=== PATIENT | male | born 1970 | race Caucasian/White ===

== ENCOUNTER 2020-01-01 13:51 | Inpatient (IN) | payer OTHER ==
[~2020-01-01] VITALS: Ht 177.8 cm; Wt 113.4 kg
[2020-01-01 13:56] VITALS: BP 161/93
[2020-01-01] MEDS ORDERED: PROAIR HFA8.5 GM INH (13:59)
[2020-01-01] MEDS ORDERED: METFORMIN HCL500 M3 PO (14:00)
[2020-01-01] MEDS ORDERED: SYMBICORT160 MCG/4. INH (14:00)
[2020-01-01] MEDS ORDERED: SINGULAIR4 M1 PO (14:00)
[2020-01-01] MEDS ORDERED: ALBUTEROL2.5 MG/31 INH (14:01)
[2020-01-01 14:31] LABS: ABSOLUTE NEUTROPHILS 7.4 thou/uL (1.4-8.2); BASOPHILS 0.6 % (0.0-2.0); EOSINOPHILS 3.6 % (0.0-3.0); HEMATOCRIT 38.2 % (42.0-52.0); HEMOGLOBIN 13.4 gm/dL (14.0-18.0); LYMPHOCYTES 16.7 % (24.0-44.0); MCV 91.4 fL (80.0-100.0); MONOCYTES 5.9 % (1.0-8.0); PLATELET COUNT 281 thou/uL (150-400); POLYS 73.2 % (36.0-66.0); RBC 4.19 mil/uL (4.50-6.00); RDW 13.5 % (10.5-14.5); WBC 10.1 thou/uL (4.0-11.0)
[2020-01-01 14:40] LABS: CALCIUM 8.6 mg/dL (8.5-10.1); CREATININE 0.9 mg/dL (0.7-1.3); POTASSIUM 3.3 mmol/L (3.5-5.1)
[2020-01-01 14:45] LABS: ALBUMIN 3.2 g/dL (3.4-5.0); TOTAL BILIRUBIN 0.3 mg/dL (0.2-1.0); TOTAL PROTEIN 7.6 g/dL (6.4-8.2)
[2020-01-01 14:52] VITALS: BP 161/93
[2020-01-01 15:59] LABS: URINE BILIRUBIN NEGATIVE (Negative); URINE BLOOD NEGATIVE (Negative); URINE CLARITY CLEAR; URINE COLOR YELLOW; URINE GLUCOSE-RANDOM* NEGATIVE (Negative); URINE KETONES NEGATIVE (Negative); URINE LEUKOCYTES-REFLEX NEGATIVE (Negative); URINE NITRITE-REFLEX NEGATIVE (Negative); URINE PROTEIN (DIPSTICK) TRACE (Negative); URINE SPECIFIC GRAVITY >= 1.030 (1.005-1.035); URINE UROBILINOGEN 0.2 E.U./dl (0.2-1.0)
[2020-01-01 16:49] LABS: CHOLESTEROL 103 mg/dL (<200); HDL CHOLESTEROL 32 mg/dL (>40); LDL CHOLESTEROL 51 mg/dL (<100); TC:HDL 3.2 Ratio (Not establshd); TRIGLYCERIDE 101 mg/dL (<150); VLDL 20 mg/dL (<40)
--- NOTE | 2020-01-01 16:50 | NUR ---
ABSORPTION AND ADSORPTION ENGINEER CONTACTED TO ORDER A REGULAR DIET MEAL TRAY. INFORMED TO DELIEVER TO ROOM TO ROOM 460
[2020-01-01 16:55] VITALS: BP 162/80
[2020-01-01 17:13] LABS: TSH 2.065 uIU/mL (0.358-3.740)
[2020-01-01 17:36] VITALS: BP 133/80
[2020-01-01 17:42] LABS: FOLIC ACID 33.4 ng/mL (8.6-58.9)
[2020-01-01 20:29] VITALS: BP 117/66
--- NOTE | 2020-01-01 20:48 | NUR ---
PATIENT CAME FROM ER AROUND 1645. ALERT X ORIENTED X 4. AMBULATES SELF. REGULAR DIET. ON ROOM AIR. BLOOD SUGAR CHECK BEFORE DINNER AND BEDTIME. PT RECENTLY RELEASED FROM [facility], NO HISTORY OF TRAVEL, LOWER EXTREM CELLULITIS STARTED 2 DAYS BACK, NO HISTORY OF TRAVEL. DOESN'T WANT HIS CONDITION TO BE COMMUNICATED WITH FAMILY OR FRIENDS. SHIFT REPORT GIVEN TO MORAIMA RIVERA RN.
--- NOTE | 2020-01-02 03:45 | NUR ---
PATIENT ALERT AND ORIENTED X4. UP TO BATHROOM INDEPENDENTLY. COOPERATIVE WITH CARE. BS MONITORED PER ORDER. BILATERAL LOWER LEGS WITH EDEMA AND REDNESS, HOWEVER, PATIENT STATES THAT THEY FEEL BETTER. MEDICATED FOR PAIN WITH GOOD RESULTS. PATIENT ABLE TO SLEEP. WILL MONITOR.
[2020-01-02 05:55] LABS: HEMATOCRIT 36.6 % (42.0-52.0); HEMOGLOBIN 12.4 gm/dL (14.0-18.0); MCH 31.6 pg (26.0-34.0); MCHC 33.8 g/dL (28.0-37.0); MCV 93.4 fL (80.0-100.0); RBC 3.92 mil/uL (4.50-6.00); RDW 13.4 % (10.5-14.5); WBC 7.8 thou/uL (4.0-11.0)
[2020-01-02 08:10] VITALS: BP 115/67
[2020-01-02 08:25] VITALS: BP 115/67
--- NOTE | 2020-01-02 15:30 | NUR ---
Pt.was sleeping when I first arrived on duty. Pt ate all his food on his try. Pt was oob to bathroom other lyle in bed with feet elevated. Pt stated both his legs are feeling better. Skin is red and edematous , no edema , weeping or open woounds noted. Chest sounds were clear , pedal pulse was faint and area tender to touch. last BM was on 01/02/20. Leandro denies any burning pain. Blood glucose were as follow 97 this am and 108 @ lunch. Insulin not given as per sliding scale orderes. ordergrzegorz frederick bandage wraps to both legs . Tylenal po for leg discomfort was give rating from level 5 to lvevl 2 with with relife. Pt is able to move toes, denies tingling or numbness to area.
[2020-01-02 15:40] VITALS: BP 120/66
[2020-01-02 20:13] VITALS: BP 142/70
--- NOTE | 2020-01-03 03:40 | NUR ---
ASSUMED CARE OF PT AT 1900HRS. PT AOX4 ADN LETS NEEDS BE KNOWN. PT IS UP AD MARCUS. ASSESSMENT CHARTED. ABX TREATMENT CONTINUED. PT WAS ABLE TO GET COMFORTABLE AND SLEEP PART OF THE SHIFT. VSS AND NO S/S OF ACUTE DISTRESS. WILL CONTINUE TO MONITOR FOR CHANGES.
[2020-01-03 06:19] LABS: HEMATOCRIT 34.5 % (42.0-52.0); HEMOGLOBIN 11.5 gm/dL (14.0-18.0); MCH 31.5 pg (26.0-34.0); MCHC 33.4 g/dL (28.0-37.0); MCV 94.2 fL (80.0-100.0); RBC 3.66 mil/uL (4.50-6.00); RDW 13.6 % (10.5-14.5); WBC 5.5 thou/uL (4.0-11.0)
[2020-01-03 07:34] VITALS: BP 148/90
--- NOTE | 2020-01-03 13:18 | NUR ---
ASSUMED PT CARE AT 0700. PT ALERT X ORIENTED X 4. CALL LIGHT WITHIN REACH. PT WILL CALL APPROPRIATELY. STAND BY ASST FOR SAFETY. PAIN CONTROLLED BY PAIN MEDS. PT HAS B/L WHEEZING, PT SAID HE TAKES BREATHING TT AT HOME FOR COPD ,COMMUNICATED WITH DOCTOR. WILL CONT TO MONITOR.
--- NOTE | 2020-01-03 14:25 | NUR ---
PT ADMITTED RELATED TO BILATERAL LEFT EXTREMITY CELLULITIS. CM REVIEWED CHART AND SPOKE WITH CARE TEAM. CM ATTEMPTED TO VISIT WITH PT THIS AM BUT PT DIDN'T ANSWER WHEN CM KNOCKED. CM CALLED AND SPOKE WITH PT OVER THE PHONE. PT APPEARED TO BE A&O X4. CM ROLE INTRODUCED. PT INDICATED HE HAD BEEN STAYING WITH A FRIEND [employer]. PT INDICATED FULL FIGHT TO ENTER NO STEPS ONCE INSIDE. PT INDICATED HE HAD BEEN INDEPENDENT WITH GAIT AND ADLS [employer]. PT INDICATED HE IS PATIENT PAY AND HADN'T BEEN EMPLOYED IN [employer]. PT [facility] PT INDICATED HE HOPES TO GO BACK TO STAYING WITH FRIEND UPON [place]. PT INDICATED HE IS INTERESTED IN A COPY OF [facility] PACKET AND MAY NEED ASSISTANCE WITH MEDS UPON [place]. CM TO FOLLOW INDICATED WITH DC PLANNING.
[2020-01-03 20:23] VITALS: BP 143/77
--- NOTE | 2020-01-04 03:45 | NUR ---
ASSUMED CARE OF PT AT 1900HRS. PT AOX4 AND UP AD MARCUS. PT LETS NEEDS BE KNOWN. ABX TREATMENT CONTINUED. PT REPORTS SOME PAIN TO BLE. PT DENIES NAUSEA OR SOA. ASSESSMENT CHARTED. PT WAS ABLE TO GET COMGORTABLE AND SLEEP PART OF THE SHIFT. VSS AND NO S/S OF ACUTE DISTRESS. WILL CONTINUE TO MONITOR FOR CHANGES.
[2020-01-04 07:15] VITALS: BP 170/65
--- NOTE | 2020-01-04 12:07 | NUR ---
Received awake on bed. Due medications given as prescribed. A+Ox4. On room air, on IV steroids. On regular diet-tolerating well; no nausea, no vomiting and no abdominal pain noted. On blood sugar monitoring- taken and recorded accordingly; with sliding scale insulin ordered, given as prescribed. Continent of bowel and bladder- able to go to the toilet with standby assist. Falls bundle in place. With Lower extremity cellulitis- no dressing ordered; kept elevated; ointment applied as ordered. Assisted in ADLs. With SL at L hand- intact and flushing well, on IV antibiotics and IV steroids. To continue monitoring patient.
[2020-01-04 15:07] VITALS: BP 154/79
[2020-01-04 19:15] VITALS: BP 141/78
--- NOTE | 2020-01-05 06:28 | NUR ---
PT AOX4 AND UP AD MARCUS. ABX TREATMENT CONTINUED. RT CONTINUED. PT WAS ABLE TO GET COMFORTABLE AND SLEEP PART OF THE SHIFT. VSS AND NO S/S OF ACUTE DISTRESS. WILL CONTINUE TO MONITOR.
[2020-01-05 07:20] VITALS: BP 139/68
[2020-01-05] MEDS ORDERED: KEFLEX500 M1 PO (12:23)
[2020-01-05] MEDS ORDERED: TRIAMCINOLONE A80 G2 TOP (12:23)
[2020-01-05] MEDS ORDERED: LAMISIL AT 1% C12 G1 TOP (12:23)
[2020-01-05] MEDS ORDERED: PROAIR HFA8.5 GM INH (12:23)
[2020-01-05] MEDS ORDERED: METFORMIN HCL500 M3 PO (12:24)
[2020-01-05] MEDS ORDERED: SINGULAIR4 M1 PO (12:24)
[2020-01-05] MEDS ORDERED: SYMBICORT160 MCG/4. INH (12:24)
[2020-01-05 12:51] VITALS: BP 139/68
--- NOTE | 2020-01-05 15:03 | NUR ---
Received awake on bed. Due medications given as prescribed. A+Ox4. On room air, on regular breathing treatments. On regular diet- tolerating well; no nausea, no vomiting and no abdominal pain noted. On blood sugar monitoring, taken and recorded; with sliding scale insulin ordered, given as prescribed. With SL at R hand- intact and flushing well; on IV steroids- given as prescribed. Up ad my, independent with ADLs. Bilateral lower extremities still swollen and red, kept elevated; pt refused to have ointment applied despite explanation for the indication for the ointments. No complaints of pain noted- pt informed that he has PRN medications available as needed. To continue monitoring patient. RT seen and assessed pt, to ask physician if pt will be needing Chest CT scan due to bilat LE cellulitis and now requiring for additional nebulization due to SOA- Dr Garber informed; no need as of now, RT informed as well. Pt requested to have inhaler prescribed- Dr Garber informed; RT spoke to the pt as well re: inhalers and nebulization; PRN Albuterol nebulization every 2 hours ordered instead for the pt. Discharge orders made. Discharge instructions, follow up schedule and resources given to patient. IV discontinued. CM said meds will be vouched- a/w advise if ok to discharge pt from unit. Discharge forms signed. Pt brought out of the unit via wheelchair with his personal belongings, passed by outpatient pharmacy for his meds. PT fetched by his . Left unit at 1453.
--- NOTE | 2020-01-05 16:42 | NUR ---
CARE TEAM INDICATED PT MEDICALLY STABLE TO DC TODAY. MEDS VOUCHERED $92.47. NO OTHER CM INTERVENTION INDICATED. CASE CLOSED.
== END 2020-01-05 15:31 | disposition home or self-care (01) | DRG 603 ==
LOC: ER 13:51 → 4W 17:13
PROVIDERS: Nurse Practitioner Family; ADMIT Hospitalist; ATTEND Hospitalist
DX: L03.116 Cellulitis of left lower limb (principal); I10 Essential (primary) hypertension; L03.115 Cellulitis of right lower limb; E66.9 Obesity, unspecified; J44.9 Chronic obstructive pulmonary disease, unspecified; E87.6 Hypokalemia; R91.1 Solitary pulmonary nodule; F17.210 Nicotine dependence, cigarettes, uncomplicated; F12.90 Cannabis use, unspecified, uncomplicated; E11.9 Type 2 diabetes mellitus without complications; I87.8 Other specified disorders of veins; B35.3 Tinea pedis; Z91.19 Patient's noncompliance with other medical treatment and regimen; Z68.35 Body mass index [BMI] 35.0-35.9, adult; Z79.899 Other long term (current) drug therapy
CPT/HCPCS: 10040